=== PATIENT | male | born 1950 | race Caucasian/White ===

== ENCOUNTER 2020-12-29 19:30 | Outpatient (CLI) | payer MEDICARE | END 2020-12-29 19:31 | disposition home or self-care (01) | LOC: SLEEPLAB 19:30 | PROVIDERS: ATTEND Physician Assistant | DX: G47.33 Obstructive sleep apnea (adult) (pediatric) (principal) | CPT/HCPCS: 95811 ==

== ENCOUNTER 2024-09-07 13:53 | Outpatient (CLI) | payer MEDICARE ==
[2024-09-07 15:19] LABS: #Basophils 0.03 10x3/uL (0.0-0.2); %Basophils 0.7 % (0.0-1.0); %Eosinophils 3.4 % (0.0-10.0); %Lymphocytes 31.9 % (21.0-51.0); %Monocytes 10.6 % (0.0-10.0); %Neutrophils 53.2 % (42.0-75.0); Hematocrit 31.5 % (42.0-52.0); Hemoglobin 10.9 g/dL (14.0-18.0); Mean Corpuscular HGB CONC 34.6 g/dL (32.0-36.0); Mean Corpuscular Hemoglobin 30.9 pg (27.0-31.0); Mean Corpuscular Volume 89.2 fL (78.0-98.0); Mean Platelet Volume 9.7 fL (7.4-10.4); Platelet Count 177 10x3/uL (130-400); RBC Distribution Width 12.6 % (11.5-14.5); Red Blood Cell (RBC) Count 3.53 mill/uL (4.70-6.10)
[2024-09-07 15:35] LABS: ALT (SGPT) 84 U/L (8-55); AST (SGOT) 49 U/L (5-34); Albumin 3.9 g/dL (3.4-4.8); Alkaline Phosphatase 57 U/L (40-110); Anion Gap 11 mmol/L (10-20); BUN (Urea Nitrogen) 35 mg/dL (8.4-25.7); Bilirubin, Total 0.7 mg/dL (0.2-1.2); Calc. Creatinine Clearance 0 mL/min (70-130); Calcium 9.4 mg/dL (7.8-10.44); Carbon Dioxide 24 mmol/L (23-31); Chloride 109 mmol/L (98-107); Estimated GFR 24; Globulin 3.3 g/dL (2.4-3.5); Glucose 111 mg/dL (83-110); Potassium 4.2 mmol/L (3.5-5.1); Protein, Total 7.2 g/dL (5.8-8.1); Sodium 140 mmol/L (136-145)
== END 2024-09-07 13:54 | disposition home or self-care (01) ==
LOC: LABBT 13:53
PROVIDERS: ATTEND Internal Medicine Cardiovascular Disease
DX: Z01.812 Encounter for preprocedural laboratory examination (principal); I25.10 Atherosclerotic heart disease of native coronary artery without angina pectoris
CPT/HCPCS: 80053; 85025

== ENCOUNTER 2024-09-11 13:04 | Observation (INO) | payer MEDICARE ==
[2024-09-11 17:16] VITALS: BMI 27.1
[2024-09-11] MEDS: Sodium Chloride 0.9% 1,000 ML IV SCH (18:02)
[2024-09-11] MEDS ORDERED: DC ENOXAPARIN NIGHT BEFORE CATH PER TUBE SCH (22:00)
[2024-09-12] MEDS ORDERED: Adenosine 6 mg (2 mL) VIAL ONE (06:31)
[2024-09-12] MEDS ORDERED: Verapamil 5 MG/2 ML VIAL ONE (06:32)
[2024-09-12] MEDS ORDERED: Nitroglycerin 50 MG/250 ML BOT 0 ML ONE (06:32)
[2024-09-12] MEDS ORDERED: Heparin 10,000 UNITS/ 10 ML VIAL ONE (06:32)
[2024-09-12 06:39] LABS: Anion Gap 10 mmol/L (10-20); BUN (Urea Nitrogen) 35 mg/dL (8.4-25.7); Calc. Creatinine Clearance 30 mL/min (70-130); Calcium 8.7 mg/dL (7.8-10.44); Carbon Dioxide 22 mmol/L (23-31); Chloride 113 mmol/L (98-107); Estimated GFR 23; Glucose 83 mg/dL (83-110); Potassium 4.5 mmol/L (3.5-5.1); Sodium 140 mmol/L (136-145)
[2024-09-12 12:05] LABS: Anion Gap 12 mmol/L (10-20); BUN (Urea Nitrogen) 34 mg/dL (8.4-25.7); Calc. Creatinine Clearance 31 mL/min (70-130); Calcium 8.9 mg/dL (7.8-10.44); Carbon Dioxide 21 mmol/L (23-31); Chloride 114 mmol/L (98-107); Estimated GFR 25; Glucose 76 mg/dL (83-110); Potassium 4.7 mmol/L (3.5-5.1); Sodium 142 mmol/L (136-145)
[2024-09-12] MEDS ORDERED: fentaNYL 50 mcg/mL 1 mL Vial ONE (12:25)
[2024-09-12] MEDS ORDERED: Midazolam HCl 2 mg/2 ml Vial ONE (12:26)
[2024-09-12] MEDS ORDERED: Acetaminophen/Codeine 30-300mg Tablet PO PRN ×2 (13:20)
[2024-09-12] MEDS ORDERED: Nitroglycerin 0.4 MG TAB (25 Tab Bottle) SL PRN (13:20)
[2024-09-12] MEDS ORDERED: Sodium Chloride 0.9% 200 ML IV PRN (13:20)
[2024-09-12 13:40] VITALS: BP 152/70
[2024-09-12] MEDS ORDERED: Iopamidol 370 76% 100 ML VIAL ONE (14:58)
[2024-09-12 16:17] VITALS: TEMP 97.9
[2024-09-12] MEDS: Sodium Chloride 0.9% 1,000 ML IV SCH (17:12)
[2024-09-12] MEDS ORDERED: Rosuvastatin 20 MG TAB PO SCH (21:00)
[2024-09-12] MEDS ORDERED: Icosapent Ethyl 1 GM CAPSULE PO SCH (21:00)
[2024-09-12] MEDS ORDERED: Carvedilol 25 MG TAB PO SCH (21:00)
[2024-09-13] MEDS ORDERED: Aspirin Chewable 81 MG TAB PO SCH (09:00)
[2024-09-13] MEDS ORDERED: Semaglutide [Ozempic] 0.25 MG/0.368 ML Pen.Injctr SC SCH (09:00)
[2024-09-13] MEDS ORDERED: Amlodipine 10 MG TAB PO SCH (09:00)
[2024-09-13] MEDS ORDERED: Ezetimibe 10 MG TAB PO SCH (09:00)
[2024-09-13] MEDS ORDERED: Clopidogrel Bisulfate 75 MG TAB PO SCH (09:00)
== END 2024-09-12 20:05 | disposition home or self-care (01) ==
LOC: INTOOBSV 16:33 → 2NO 16:33
PROVIDERS: ADMIT Internal Medicine Cardiovascular Disease; ATTEND Internal Medicine Cardiovascular Disease
PROC: 4A023N7 Measurement of Cardiac Sampling and Pressure, Left Heart, Percutaneous Approach (ICD-10-PCS; principal; 2024-09-12)
DX: I25.10 Atherosclerotic heart disease of native coronary artery without angina pectoris (principal); I12.9 Hypertensive chronic kidney disease with stage 1 through stage 4 chronic kidney disease, or unspecified chronic kidney disease; N18.9 Chronic kidney disease, unspecified; N20.0 Calculus of kidney; E78.2 Mixed hyperlipidemia; G47.33 Obstructive sleep apnea (adult) (pediatric); Z95.1 Presence of aortocoronary bypass graft; Z96.641 Presence of right artificial hip joint; Z87.891 Personal history of nicotine dependence; Z90.89 Acquired absence of other organs; Z79.02 Long term (current) use of antithrombotics/antiplatelets; Z79.82 Long term (current) use of aspirin; Z79.899 Other long term (current) drug therapy
CPT/HCPCS: 80048 ×2; 93459; C1769 ×3; C1887 ×2; C1894; J2250; J3010; J7030 ×2; Q9967; 36415; 99152; 99153; J0153; J1644